=== PATIENT | male | born 1935 | race Hispanic/Latino ===

== ENCOUNTER 2019-09-11 09:23 | Day surgery (SDC) | payer MEDICARE ==
[2019-09-11] MEDS ORDERED: NACL 0.9% 500 ML 500 ML IV SCH (10:00)
[2019-09-11 10:36] LABS: INR 1.05 (0.87-1.13)
[2019-09-11 10:37] LABS: Partial Thromboplastin Time 28.4 Sec. (24.2-36.6)
[2019-09-11 10:46] LABS: Calcium 9.3 mg/dL (8.4-10.2)
[2019-09-11] MEDS ORDERED: HEPARIN 10,000 UNITS/10 ML ONE (10:48)
[2019-09-11] MEDS ORDERED: HEPARIN/NS 5000 UNIT/500ML(CATH LAB) 1,000 ML IR ONE (10:48)
[2019-09-11] MEDS ORDERED: XYLOCAINE 2% INFILTRATI ONE (10:48)
[2019-09-11] MEDS ORDERED: VERSED ONE (10:49)
[2019-09-11] MEDS ORDERED: NITROGLYCERIN SYRINGE 0 ML ONE (10:49)
[2019-09-11] MEDS ORDERED: SUBLIMAZE ONE (10:49)
--- NOTE | 2019-09-11 14:46 | Cardiac Catherization Report ---
CARDIAC CATHETERIZATION REFERRING PHYSICIAN: Dr. Bao Warner. INDICATION FOR PROCEDURE: The patient has known severe mitral regurgitation, atrial fibrillation, history of coronary artery bypass surgery, worsening shortness of breath referred for left heart catheterization in anticipation of possible mitral valve intervention. Risks, benefits, alternatives discussed at length prior to obtaining informed consent. It should be noted the patient has a known history of chronic kidney disease. Last creatinine was 2.0, today is 1.8. Risk of contrast induced nephropathy also discussed a priority. PROCEDURE IN DETAIL: The patient was brought to catheterization lab in a postabsorptive state, prepped and draped in sterile fashion. 8 mL of 2% lidocaine used to anesthetize the right groin. A standard 6-Wallisian sheath used to cannulate the right common femoral artery via modified Seldinger technique. All exchanges performed to exchange a J-tip guidewire. JL3.5 catheter used to engage the left main. No dampening or ventricularization. Cineangiography performed in all projections. JR4 catheter used to cross the aortic valve under fluoroscopic guidance. Left ventriculography performed in [place] projection via hand injections. Catheter flushed. Manual pullback performed with continuous pressure monitoring. Catheter used to engage the right coronary and SVG graft angiography performed. Next, catheter used to engage the left subclavian carefully over a wire advanced difficulty engaging the WEBB. Selective third order mid left subclavian angiography was performed. Next, selective WEBB angiography was performed in multiple projections. Next, catheter removed from the left subclavian and body carefully over wire. No complications. Sheath removed. Manual pressure used to achieve hemostasis. I directly supervised the administration of moderate sedation from 11:24 to 11:50 with fentanyl and Versed. There were no immediate complications noted. FINDINGS: The patient remained in atrial fibrillation with controlled ventricular response throughout. Left ventriculography reveals normal systolic performance with estimated ejection fraction of 50-55%, severe mitral regurgitation is noted. Left main with a 25% distal stenosis. Left circumflex is patent. LAD has a chronic total occlusion in the proximal segment. The right coronary has a stent in the proximal segment, chronic total occlusion in the mid right coronary. The SVG to right coronary is occluded. SVG to diagonal is widely patent. WEBB to LAD is widely patent. CONCLUSIONS: 1. 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 Patent left main and left circumflex. 2. Patent WEBB to LAD, patent SVG to first diagonal. 3. Occluded SVG to right coronary, extensive left to right collaterals are identified. 4. Preserved left ventricular systolic ____, estimated ejection fraction of 50-55%. 5. Severe mitral regurgitation. 6. Normal LVEDP should be noted. PLAN: Followup with Dr. Warner, restart anticoagulation, standard groin care. The patient will be considered for mitral valve intervention. Results of the procedure explained to the patient and family. All questions and concerns were addressed. JOB# [id number] JANELLE/JERALD
[2019-09-11 15:04] VITALS: BP 173/71
--- NOTE | 2019-09-11 15:28 | Short Stay Summary ---
Short Stay Documentation Date of service: 09/11/19 - History H&P: obtained from office - Allergies and Medications Current Medications: Allergies No Known Allergies Allergy (Unverified 09/11/19 09:24) Home Medications Medication Instructions Recorded Confirmed Last Taken Type Allopurinol [Zyloprim] 300 mg PO DAILY 09/11/19 09/11/19 09/10/19 History 300 mg Carvedilol [Coreg] 25 mg PO BID 09/11/19 09/11/19 09/10/19 History 25 mg Furosemide [Lasix TAB] 20 mg PO DAILY 09/11/19 09/11/19 09/10/19 History 20 mg Magnesium Oxide [Mag-Ox] 420 mg PO DAILY 09/11/19 09/11/19 09/10/19 History 420 mg Olmesartan/Hctz 40/12.5MG 1 tab PO DAILY 09/11/19 09/11/19 09/10/19 History 1 Pantoprazole [Protonix TAB] 40 mg PO BID 09/11/19 09/11/19 09/10/19 History 40 mg Rivaroxaban [Xarelto] 15 mg PO DAILY 09/11/19 09/11/19 09/07/19 History 15 mg Venlafaxine Xr [Effexor XR] 75 mg PO DAILY 09/11/19 09/11/19 09/10/19 History 75 mg amLODIPine [Norvasc] 5 mg PO DAILY 09/11/19 09/11/19 09/10/19 History 5 mg Active Medications Sodium Chloride (Nacl 0.9% 500 Ml) 500 mls @ 50 mls/hr IV DIRECT MICHAEL Stop: 09/11/19 19:59 - Brief post op/procedure progress note Date of procedure: 09/11/19 Pre-op diagnosis: CAD; MR Post-op diagnosis: same Procedure: C - see dictated cath report Anesthesia: local Estimated blood loss: none Condition: stable - Disposition Condition at discharge: Good Disposition: [id number] TO HOME OR SELFCARE - Discharge Diagnoses (1) CAD (coronary artery disease) Status: Chronic (2) History of coronary artery bypass graft Status: Chronic (3) Severe mitral regurgitation Status: Chronic (4) Atrial fibrillation Status: Chronic Short Stay Discharge Plan Diet: low fat, low cholesterol, low salt Wound: open to air, keep clean and dry, per your surgeon's advice Follow up with: LAURIE CHEEK MD [Primary Care Provider] - 7 Days Forms: CardCat PCI D/C Instructions
== END 2019-09-11 15:58 | disposition home or self-care (01) ==
LOC: CATHLABREC 09:23
PROVIDERS: ATTEND Internal Medicine
DX: I34.0 Nonrheumatic mitral (valve) insufficiency (principal); I48.91 Unspecified atrial fibrillation; I25.10 Atherosclerotic heart disease of native coronary artery without angina pectoris; T82.855A Stenosis of coronary artery stent, initial encounter; I11.0 Hypertensive heart disease with heart failure; I50.9 Heart failure, unspecified; Z90.49 Acquired absence of other specified parts of digestive tract; Z98.890 Other specified postprocedural states; Z85.89 Personal history of malignant neoplasm of other organs and systems; Z79.899 Other long term (current) drug therapy; Z95.1 Presence of aortocoronary bypass graft; Z98.49 Cataract extraction status, unspecified eye
CPT/HCPCS: 36415; 80048; 85610; 85730; 93005; 93010; 93459; C1894; J1644; J2250; J3010; J7040; Q9967